=== PATIENT | male | born 1975 | race African-American/Black ===

== ENCOUNTER 2025-07-18 09:22 | Emergency (ER) | payer OTHER, SELFPAY ==
[2025-07-18 09:25] VITALS: BP 146/102
--- NOTE | 2025-07-18 10:22 | ED.GENMED ---
History of Present Illness
General
Chief Complaint: Chest Problem
Source: patient
Exam Limitations: none
Time Seen by Provider: 07/18/25 10:11
History of Present Illness
History of Present Illness:
49-year-old male presents complaining of feeling a pop in his chest that radiated to his back. He now notes pain in his chest that hurts to breathe. Radiates down his arm slightly. This happened while sitting waiting to join a conference call for
work this morning. This was preceded by a couple days worth of chest congestion cough. He thought he may have had the flu initially. He denies a fever. No recent extended travel or surgery. No leg swelling or calf pain.
Phy Exam
Physical Exam
Physical Exam:
General: Well-appearing male no acute respiratory distress
HEENT normal cephalic atraumatic
Heart: Regular rate and rhythm
Lungs: Clear no wheeze
Extremities: No cyanosis or edema
Course
Orders/Labs/Results
Orders:
Orders
07/18/25 09:26
EKG [Electrocardiogram (*1)] Urgent
Reason for Study: Chest Pain
EKG- Treatment ONCE
07/18/25 10:21
CT Chest Angio W/wo Iv Contras Urgent
Comment:
Reason For Exam: chest and back pain
07/18/25 10:30
Basic Metabolic Panel Urgent
COVID-19 Antigen Urgent
Source: Nasal Swab
Complete Blood Count/With Diff Urgent
Troponin I Urgent
Influenza A+B Rapid Molecular Urgent
JUANA Source: Nasal Swab
Specimen Description:
07/18/25 10:30
07/18/25 10:30
Vital Signs
Initial and Last Documented VS:
Initial Vital Signs
Temp Pulse Resp BP Pulse Ox
98.6 F 63 18 146/102 99
07/18/25 09:25 07/18/25 09:25 07/18/25 09:25 07/18/25 09:25 07/18/25 09:25
Last Documented Vital Signs
Temp Pulse Resp BP Pulse Ox
98.6 F 62 14 146/102 97
07/18/25 09:25 07/18/25 12:45 07/18/25 12:45 07/18/25 09:25 07/18/25 11:57
MDM/Problems Addressed
Differential Diagnosis Includes:
Patient presents after feeling a pop in his chest and now with chest and back pain that radiates down the arm. Consider musculoskeletal chest pain versus radiculopathy versus dissection versus PE
Vital signs are stable other than slightly elevated blood pressure. This will be rechecked. EKG shows sinus rhythm without ischemic changes. The rate is 68.
*Pulse Oximetry
SaO2: 99
Patient hypoxic: no
*Critical Care Note
Total Time (30-74mins, 75-104mins- exclusive of procedures): Not Applicable
Update Note
Update Note:
Workup here essentially unremarkable COVID and flu negative troponin undetectable CT angio of the chest was negative for acute cardiopulmonary abnormality. Suspect musculoskeletal pain. Patient does state he has been dealing with a cold.
Recommend ibuprofen or Tylenol for pain. No indication for admission. Stable for discharge
ED Attending Note
-
Portions of this chart may have been created with voice recognition software.� Occasional wrong word or��sound alike� substitutions may have occurred due to the inherent limitations of voice recognition software.
Discharge Plan
Departure
Patient Disposition: Home (Routine Discharge)
Date of Disposition: 07/18/25
Time of Disposition: 13:22
Patient with high blood pressure during this ER visit?: No
Discharge Problem:
Chest pain
Instructions: Chest Pain PCP Follow Up
Referrals:
UNKNOWN - PT DOES,NOT KNOW [Family Provider]
Activity Restrictions/Additional Instructions:
Return here for worsening symptoms. You may use Tylenol or ibuprofen for pain. Follow-up with your family doctor otherwise
Interventions
Interventions:
*Risk Screen - Suicide Last Done: 07/18/25 10:34
*General Assessment Last Done: 07/18/25 10:34
*Neglect/Abuse Screening Last Done: 07/18/25 10:34
*ED- Fall Risk Assessment Last Done: 07/18/25 10:34
*ED COVID-19 Vaccine History Last Done: 07/18/25 10:34
ED- Cardiac Assessment Last Done: 07/18/25 11:57
ED- Pulmonary Assessment Last Done: 07/18/25 11:57
Discharge Date and Time
Print Language: TURKISH
[2025-07-18 10:33] VITALS: BMI 48.5
[2025-07-18 10:38] LABS: Hematocrit 46.6 % (39.0-52.0); Hemoglobin 15.5 g/dL (13.0-18.0); Mean Corp Hgb Conc. 33.3 g/dL (33.0-37.0); Mean Corpuscular Volume 86.9 fL (80.0-94.0); Nucleated Red Blood Cells % 0 % (-); Platelet Count 194 10^3/uL (130-400); Red Cell Dist. Width 13.2 % (11.5-14.5)
[2025-07-18 10:53] LABS: COVID-19 Antigen Negative (Negative)
[2025-07-18 11:01] LABS: Blood Urea Nitrogen 14 mg/dl (9-20); Calcium 9.2 mg/dl (8.4-10.2); Carbon Dioxide 28 mmol/L (22-30); Chloride 107 mmol/L (98-107); Estimated Creatinine Clearance > 125 ml/min; Glucose 94 mg/dl (70-99); Sodium 138 mmol/L (135-145); eGFR > 60.00
[2025-07-18 11:05] LABS: Troponin I < 0.012 ng/ml
[2025-07-18 13:50] VITALS: BP 147/97
== END 2025-07-18 13:51 | disposition home or self-care (01) ==
LOC: EMR 09:22
PROVIDERS: Physician Assistant; EMERGENCY PHYSICIAN Emergency Medicine
DX: R07.9 Chest pain, unspecified (principal)
CPT/HCPCS: 99284; 71275; 80048; 84484; 85025; 87502; 87811; 93005; Q9967